=== PATIENT | female | born 1975 | race African-American/Black ===

== ENCOUNTER 2021-03-01 10:00 | Inpatient (IN) | payer OTHER ==
[2021-02-28 14:46] VITALS: BMI 28.1
[2021-03-08 07:43] LABS: HEMOGLOBIN 12.6 GM/dL (10.7-15.3); MCH 24.6 pg (25.7-33.7); MCHC 31.4 g/dl (32.0-36.0); MEAN CELL VOLUME 78.1 fl (80-96); MEAN PLT VOLUME 7.9 fl (7.5-11.1); PLATELET COUNT 266 10^3/uL (134-434); RBC 5.12 M/mm3 (3.60-5.2); RDW 16.1 % (11.6-15.6); WHITE BLOOD COUNT 5.1 K/mm3 (4.0-10.0)
[2021-03-08] MEDS ORDERED: MIDAZOLAM HCL 2 MG/2 ML SINGLE DOSE VIAL ONE ×2 (08:26)
[2021-03-08] MEDS ORDERED: BUPIVACAINE LIPOSOME/PF (EXPAREL) 266 MG/20 ML VIAL ONE (08:27)
[2021-03-08] MEDS ORDERED: BUPIVACAINE HCL/PF 0.5% (5MG/ML) 10 ML VIAL ONE (08:27)
[2021-03-08] MEDS ORDERED: PROPOFOL 20 ML ONE ×3 (08:42→11:33)
[2021-03-08] MEDS ORDERED: fentaNYL CITRATE 250 MCG/5 ML VIAL ONE (08:42)
[2021-03-08] MEDS ORDERED: ROCURONIUM BROMIDE 100 MG/10 ML VIAL ONE (08:42)
[2021-03-08] MEDS ORDERED: ceFAZolin SODIUM 1 GM VIAL ONE (11:03)
[2021-03-08] MEDS ORDERED: GLYCOPYRROLATE 0.2 MG/1 ML VIAL ONE (11:22)
[2021-03-08] MEDS ORDERED: NEOSTIGMINE METHYLSULFATE 0.5 MG/ML - 10 ML MDV ONE (11:23)
[2021-03-08] MEDS ORDERED: DESFLURANE GAS 240 ML BOTTLE IH ONE ×2 (11:37→11:39)
[2021-03-08] MEDS ORDERED: SEVOFLURANE 250 ML BTL ONE (11:37)
[2021-03-08] MEDS ORDERED: LABETALOL HCL 5 MG/1 ML (100MG/20 ML VIAL) ONE (11:39)
[2021-03-08] MEDS ORDERED: BACITRACIN 15 GM TUBE TOPICAL OINTMENT ONE (11:51)
[2021-03-08] MEDS ORDERED: KETOROLAC TROMETHAMINE 30 MG/1 ML VIAL ONE (12:18)
[2021-03-08] MEDS ORDERED: ONDANSETRON 4 MG/2 ML VIAL IVPUSH PRN (12:52)
[2021-03-08] MEDS ORDERED: oxyCODONE HCL 5 MG TABLET PO PRN ×2 (12:52→13:52)
[2021-03-08] MEDS ORDERED: IBUPROFEN 600 MG TABLET (FP) PO PRN (12:52)
[2021-03-08] MEDS ORDERED: IBUPROFEN 800 MG/8 ML IJ IVPB PRN (12:52)
[2021-03-08] MEDS ORDERED: ACETAMINOPHEN 1000 MG/100 ML VIAL (NON FORMULARY) IVPB ONE (13:52)
[2021-03-08] MEDS ORDERED: PROMETHAZINE HCL 25 MG/1 ML VIAL IVPB PRN (13:52)
[2021-03-08] MEDS ORDERED: HYDROmorphone HCl 2 MG/ML VIAL ONE (14:48)
[2021-03-08] MEDS ORDERED: HYDROmorphone HCl 2 MG/ML VIAL IVPUSH ONE (14:50)
[2021-03-08] MEDS ORDERED: HYDROmorphone HCL CARPU-JECT 2 MG/1 ML DISP.SYRIN IVPUSH ONE (15:54)
[2021-03-08] MEDS ORDERED: HYDROmorphone HCL/PF 1 MG/ML VIAL IVPUSH ONE (15:54)
[2021-03-08] MEDS: CEFAZOLIN 2 GM/D5W 2 GM/50 ML ML IVPB SCH (17:42)
[2021-03-08] MEDS: ELECTROLYTE-148 SOLN 1,000 ML IV SCH (17:52)
[2021-03-08] MEDS: ACETAMINOPHEN 325 MG TABLET (FP) PO SCH (20:22)
[2021-03-08] MEDS: oxyCODONE HCL 5 MG TABLET PO PRN (22:46)
[2021-03-09] MEDS: ACETAMINOPHEN 325 MG TABLET (FP) PO SCH ×3 (01:24→23:00)
[2021-03-09] MEDS: CEFAZOLIN 2 GM/D5W 2 GM/50 ML ML IVPB SCH (01:24)
[2021-03-09] MEDS: LACTATED RINGERS SOLUTION 1,000 ML IV SCH ×2 (04:08→17:21)
[2021-03-09 09:51] LABS: HEMATOCRIT 37.2 % (32.4-45.2); MCH 24.8 pg (25.7-33.7); MCHC 32.1 g/dl (32.0-36.0); MEAN CELL VOLUME 77.3 fl (80-96); MEAN PLT VOLUME 7.8 fl (7.5-11.1); PLATELET COUNT 251 10^3/uL (134-434); RBC 4.81 M/mm3 (3.60-5.2); RDW 15.9 % (11.6-15.6); WHITE BLOOD COUNT 10.3 K/mm3 (4.0-10.0)
[2021-03-09] MEDS: oxyCODONE HCL 5 MG TABLET PO PRN (11:48)
[2021-03-09] MEDS ORDERED: amLODIPine BESYLATE 5 MG TABLET (FP) PO SCH (14:45)
[2021-03-09] MEDS: PANTOPRAZOLE 40 MG TABLET PO SCH (17:01)
[2021-03-09] MEDS: ELECTROLYTE-148 SOLN 1,000 ML IV SCH (17:06)
[2021-03-09] MEDS: MAGNESIUM CL 64 MG TABLET.SA PO SCH (19:05)
[2021-03-09] MEDS ORDERED: amLODIPine BESYLATE 5 MG TABLET (FP) PO ONE (19:37)
[2021-03-09] MEDS ORDERED: DOCUSATE SODIUM 100 MG CAPSULE (FP) PO PRN (19:38)
[2021-03-09] MEDS: POLYETHYLENE GLYCOL (HEALTHYLAX) 3350 17 GM PACKET PO SCH (21:25)
[2021-03-09 22:25] LABS: CALCIUM 8.8 mg/dL (8.5-10.1)
[2021-03-09 22:26] LABS: ALBUMIN 3.2 g/dl (3.4-5.0); BLOOD UREA NITROGEN 8.1 mg/dL (7-18)
[2021-03-09 22:29] LABS: CREATININE 0.9 mg/dL (0.55-1.3)
[2021-03-09 22:31] LABS: BILIRUBIN,TOTAL 0.2 mg/dL (0.2-1)
[2021-03-09 22:32] LABS: TOT PROT 6.6 g/dl (6.4-8.2)
[2021-03-10] MEDS: oxyCODONE HCL 5 MG TABLET PO PRN (00:23)
[2021-03-10] MEDS ORDERED: KCL 10 MEQ IVPB 10 MEQ/100 ML INFUS.BAG IVPB SCH (01:00)
[2021-03-10] MEDS: ACETAMINOPHEN 325 MG TABLET (FP) PO SCH ×6 (05:00→21:52)
[2021-03-10] MEDS: amLODIPine BESYLATE 10 MG TABLET (FP) PO SCH (09:36)
[2021-03-10] MEDS: POLYETHYLENE GLYCOL (HEALTHYLAX) 3350 17 GM PACKET PO SCH ×2 (09:36→21:53)
[2021-03-10] MEDS: MAGNESIUM CL 64 MG TABLET.SA PO SCH (09:36)
[2021-03-10] MEDS: PANTOPRAZOLE 40 MG TABLET PO SCH (09:36)
[2021-03-10] MEDS ORDERED: MAGNESIUM CL 64 MG TABLET.SA PO SCH (10:00)
[2021-03-10] MEDS ORDERED: POTASSIUM CHLORIDE TABS 20 MEQ TABLET.ER (FP) PO ONE (10:00)
[2021-03-10 11:01] LABS: BASO % 0.6 % (0-2.0); EOS % 0.2 % (0-4.5); HEMATOCRIT 38.3 % (32.4-45.2); HEMOGLOBIN 12.5 GM/dL (10.7-15.3); LYMPH % 19.8 % (8-40); MCH 25.1 pg (25.7-33.7); MCHC 32.6 g/dl (32.0-36.0); MEAN PLT VOLUME 7.6 fl (7.5-11.1); MONO % 7.5 % (3.8-10.2); NEUT % 71.9 % (42.8-82.8); PLATELET COUNT 256 10^3/uL (134-434); RBC 4.98 M/mm3 (3.60-5.2); RDW 16.3 % (11.6-15.6); WHITE BLOOD COUNT 7.7 K/mm3 (4.0-10.0)
[2021-03-10 11:48] LABS: CALCIUM 9.2 mg/dL (8.5-10.1)
[2021-03-10 11:49] LABS: ALBUMIN 3.6 g/dl (3.4-5.0); BLOOD UREA NITROGEN 6.2 mg/dL (7-18)
[2021-03-10 11:51] LABS: CREATININE 0.9 mg/dL (0.55-1.3)
[2021-03-10 11:52] LABS: BILIRUBIN,TOTAL 0.3 mg/dL (0.2-1)
[2021-03-10 11:54] LABS: TOT PROT 7.5 g/dl (6.4-8.2)
[2021-03-10] MEDS ORDERED: BISACODYL 10 MG SUPP.RECT PR PRN (17:24)
[2021-03-11] MEDS: ACETAMINOPHEN 325 MG TABLET (FP) PO SCH (03:53)
[2021-03-11 09:33] LABS: BASO % 0.8 % (0-2.0); EOS % 0.7 % (0-4.5); HEMATOCRIT 39.8 % (32.4-45.2); HEMOGLOBIN 12.9 GM/dL (10.7-15.3); LYMPH % 28.9 % (8-40); MCH 25.2 pg (25.7-33.7); MCHC 32.5 g/dl (32.0-36.0); MEAN CELL VOLUME 77.7 fl (80-96); MEAN PLT VOLUME 7.8 fl (7.5-11.1); MONO % 8.8 % (3.8-10.2); NEUT % 60.8 % (42.8-82.8); PLATELET COUNT 275 10^3/uL (134-434); RBC 5.12 M/mm3 (3.60-5.2); RDW 16.2 % (11.6-15.6); WHITE BLOOD COUNT 6.8 K/mm3 (4.0-10.0)
[2021-03-11] MEDS ORDERED: PT OWN MED DRAWER 7, Y5N ONE (09:57)
[2021-03-11] MEDS: MAGNESIUM CL 64 MG TABLET.SA PO SCH (09:59)
[2021-03-11] MEDS: PANTOPRAZOLE 40 MG TABLET PO SCH (09:59)
[2021-03-11] MEDS: POLYETHYLENE GLYCOL (HEALTHYLAX) 3350 17 GM PACKET PO SCH (09:59)
[2021-03-11] MEDS: amLODIPine BESYLATE 10 MG TABLET (FP) PO SCH (09:59)
[2021-03-11 10:07] LABS: CALCIUM 8.9 mg/dL (8.5-10.1)
[2021-03-11 10:08] LABS: ALBUMIN 3.5 g/dl (3.4-5.0); BLOOD UREA NITROGEN 7.9 mg/dL (7-18); MAGNESIUM 2.1 mg/dL (1.8-2.4)
[2021-03-11 10:11] LABS: CREATININE 0.8 mg/dL (0.55-1.3)
[2021-03-11 10:13] LABS: BILIRUBIN,TOTAL 0.4 mg/dL (0.2-1); TOT PROT 7.3 g/dl (6.4-8.2)
[2021-03-11 14:18] VITALS: BP 119/80; PULSE 91; TEMP 99.1
== END 2021-03-11 17:41 | disposition home or self-care (01) | DRG 743 ==
LOC: J2C 03-08 04:24 → J6S 03-08 16:12
PROVIDERS: ADMIT Obstetrics & Gynecology; ATTEND Obstetrics & Gynecology
PROC: 0UT70ZZ Resection of Bilateral Fallopian Tubes, Open Approach (ICD-10-PCS; 2021-03-08)
PROC: 0UT90ZL Resection of Uterus, Supracervical, Open Approach (ICD-10-PCS; principal; 2021-03-08 10:00)
DX: D25.1 Intramural leiomyoma of uterus (principal); D25.0 Submucous leiomyoma of uterus; N92.0 Excessive and frequent menstruation with regular cycle; R10.11 Right upper quadrant pain; I10 Essential (primary) hypertension; E66.9 Obesity, unspecified; Z68.28 Body mass index [BMI] 28.0-28.9, adult
CPT/HCPCS: 36415; 71045-TC-FY; 80053; 80061; 83036; 83721; 83735; 84100; 84443; 84703; 85025; 85027; 86850; 86900; 86901; 86922; 88307-TC; 94010; 94760; J0131